=== PATIENT | female | born 1980 | race Native Hawaiian/Other Pacific Islander ===

== ENCOUNTER 2018-07-29 06:31 | Emergency (ER) | payer OTHER ==
[~2018-07-29] VITALS: Ht 157.5 cm; Wt 78.0 kg
[2018-07-29 06:41] VITALS: TEMP 98.2
[2018-07-29 07:55] VITALS: BP 136/74
== END 2018-07-29 07:58 | disposition home or self-care (01) ==
LOC: ED 06:31
DX: M62.838 Other muscle spasm (principal)
CPT/HCPCS: 96372; 99283; J1885